=== PATIENT | male | born 1995 | race Caucasian/White ===

== ENCOUNTER 2024-03-09 16:31 | Emergency (ER) | payer SELFPAY ==
[~2024-03-09] VITALS: Ht 162.6 cm; Wt 81.6 kg
[2024-03-09 16:36] VITALS: BP 124/61; PULSE 67; RESP 18; TEMP 98.5; O2SAT 98
[2024-03-09] MEDS: TETRACAINE HCL/PF 0.5% OPTH 4 ML BTL OP ONE (18:32)
[2024-03-09] MEDS: FLUORESCEIN OPTH STRIP 1 MG OP ONE (18:32)
[2024-03-09] MEDS ORDERED: POLY10DR5 OP (18:34)
[2024-03-09 18:37] VITALS: BP 120/60; PULSE 65; RESP 18; TEMP 98.6; O2SAT 98
== END 2024-03-09 18:37 | disposition home or self-care (01) ==
LOC: MED 16:31
DX: H10.89 Other conjunctivitis (principal); B96.89 Other specified bacterial agents as the cause of diseases classified elsewhere; Z79.899 Other long term (current) drug therapy; Z91.040 Latex allergy status
CPT/HCPCS: 99283